=== PATIENT | female | born 1975 | race Caucasian/White ===

== ENCOUNTER 2025-05-25 15:07 | Emergency (ER) | payer SELFPAY ==
[~2025-05-25] VITALS: Ht 152.4 cm; Wt 62.1 kg
[2025-05-25 16:27] LABS: IMMATURE GRANULOCYTE ABSOLUTE 0.06 K/uL (0-1); NUCLEATED RED BLOOD CELLS 0.0 % (0.0-0.19); PLATELET COUNT (AUTO) 351 K/uL (130-400); RED BLOOD CELL COUNT(AUTO) 4.42 MIL/uL (4.00-5.50); RED CELL DISTRIBUTION WIDTH 13.0 % (11.0-15.5); WHITE BLOOD COUNT (AUTO) 9.5 K/uL (4.8-10.8)
[2025-05-25 16:38] LABS: CREATININE 0.6 mg/dL (0.5-1.0); GLOMERULAR FILTR. RATE CALC 111.0 mL/min (>90); GLUCOSE,RANDOM 103.0 mg/dL (70-105); SODIUM SERUM 137.0 mmol/L (136-145); UREA NITROGEN, BLOOD 10.0 mg/dL (7-18)
[2025-05-25 16:51] LABS: ADD UA MICROSCOPIC YES; APPEARANCE,URINE CLEAR (CLEAR); GLUCOSE, URINE (UA) NEGATIVE (NEGATIVE); LEUKOCYTE ESTERASE ,URINE NEGATIVE Leu/uL (NEGATIVE); NITRATE,URINE NEGATIVE (NEGATIVE); OCCULT BLOOD,URINE SMALL (NEGATIVE)
--- NOTE | 2025-05-25 16:57 | HMCIMG ---
EXAM: US for Deep Venous Thrombosis, Bilateral Lower Extremities. CLINICAL HISTORY: Leg pain and swelling. TECHNIQUE: Real-time ultrasound scan of the veins of the bilateral lower extremities with color Doppler flow, spectral waveform analysis and compression. COMPARISON: None provided. FINDINGS: DEEP VEINS: The common femoral, superficial femoral, and popliteal veins are echolucent and compressible bilaterally. There is normal color Doppler flow throughout. The visualized calf veins appear patent. SOFT TISSUES: No popliteal fossa cyst or other abnormality identified. IMPRESSION: * No sonographic evidence of deep venous thrombosis in either lower extremity. /[place]
[2025-05-25 17:00] LABS: SQUAMOUS EPITHELIAL CELL,UR Rare /HPF (0-2)
--- NOTE | 2025-05-25 17:21 | ERN ---
ED Note History of Present Illness Stated Complaint: BACK PAIN, RT UPPER LEG Chief Complaint: Back Pain-No Injury Time Seen by MD: 15:35 Time Seen by Midlevel: 15:36 Dictation: 50-year-old female with a history of hypertension and CAD coming in complaining with a right leg pain patient states she has has a pain from the knee up for one week and today started with the ankle pain as well. Patient states she has been so went for a clot. Denies any trauma. Allergies: Coded Allergies: ibuprofen (Unverified Allergy, Unknown, 05/25/25) ketorolac (Unverified Allergy, Unknown, 05/25/25) morphine (Unverified Allergy, Unknown, 05/25/25) tramadol (Unverified Allergy, Unknown, 05/25/25) Past Medical History Past Medical History: CAD, Cancer, Heart Disease, Hypertension Additional Past Medical Hx: CHRONS, VULVA CA, HX OF CERVICAL CA Surgical History: Appendectomy, Hysterectomy Surgical History Other: VAGINAL SX, PILONIDAL CYST, HEART CATH Review of System Dictation Constitutional: Negative for fever,chills, and weight loss Eyes: Negative for injury, pain,redness, and discharge ENT: Negative for injury,pain or swelling Cardiovascular: Negative for chest pain, palpitations, and edema Respiratory: Negative for shortness of breath, cough, and wheezing, Abdomen/GI: Negative for abdominal pain, nausea, vomiting, diarrhea, and constipation Back: Negative for injury and pain : Negative for injury, bleeding and discharge MS/Extremity: Negative for injury and deformity, right leg pain Skin: Negative for rash, and discoloration Neuro: Negative for headache, weakness, numbness, tingling, and seizure Psych: Negative for suicide ideation, homicidal ideation, and hallucinations Review of Systems: was completed Initial Vital Sign VS Vital Signs Date Time Temp Pulse Resp B/P (MAP) Pulse Ox O2 Delivery O2 Flow Rate FiO2 05/25/25 15:09 98.1 98 18 187/98 99 Room Air 0 05/25/25 16:14 21 Physical Exam Dictation General: awake, alert, NAD Head/Face: Normocephalic, atraumatic Eyes: PERRL, EOMI, vision at baseline ENT: oral cavity clear, TMs clear, no signs of infection Neck: Trachea midline, supple, no nuchal rigidity Cardiovascular: RRR, normal S1/S2, No MRGs, no JVD Respiratory: CTAB, no respiratory distress, No rales or wheezes Abdomen: Soft, non-tender, non-distended, normal bowel sounds, no guarding or rebound. Skin: Warm, dry, normal turgor, no rash MS/Extremity: Pulses equal, no cyanosis, neurovascular intact, FROM , cap refill less than 2 seconds, extremities warm to touch Neuro: COAx4, GCS 15, strength 5/5, CN 2-12 intact, normal cerebellar exam, normal gait, Psych: Normal behavior, mood, and affect normal Results (Laboratory/Radiology) Laboratory/Radiology Laboratory Tests Test 05/25/25 16:22 05/25/25 16:41 White Blood Count 9.5 K/uL (4.8-10.8) Red Blood Count 4.42 MIL/uL (4.00-5.50) Hemoglobin 13.5 g/dL (12.0-16.0) Hematocrit 40.8 % (36-48) Mean Corpuscular Volume 92.3 fL (79-99) Mean Corpuscular Hemoglobin 30.5 pg (27.0-33.0) Mean Corpuscular Hemoglobin Concent 33.1 g/dL (32.0-36.0) Red Cell Distribution Width 13.0 % (11.0-15.5) Platelet Count 351 K/uL (130-400) Mean Platelet Volume 9.9 fL (7.5-10.5) Immature Granulocyte % (Auto) 0.6 % (0-1) Neutrophils (%) (Auto) 54.0 % (40.0-77.0) Lymphocytes (%) (Auto) 32.3 % (21.0-51.0) Monocytes (%) (Auto) 10.1 % (3.0-13.0) Eosinophils (%) (Auto) 1.9 % (0.0-8.0) Basophils (%) (Auto) 1.1 % (0.0-5.0) Neutrophils # (Auto) 5.1 K/uL (1.8-7.7) Lymphocytes # (Auto) 3.1 K/uL (1.0-4.8) Monocytes # (Auto) 1.0 K/uL (0.1-1.0) Eosinophils # (Auto) 0.18 K/uL (0.00-0.70) Basophils # (Auto) 0.10 K/uL (0.00-0.20) Absolute Immature Granulocyte (auto 0.06 K/uL (0-1) Nucleated Red Blood Cells 0.0 % (0.0-0.19) Sodium Level 137 mmol/L (136-145) Potassium Level 3.6 mmol/L (3.5-5.1) Chloride Level 101 mmol/L (101-111) Carbon Dioxide Level 25 mmol/L (21-32) Blood Urea Nitrogen 10 mg/dL (7-18) Creatinine 0.6 mg/dL (0.5-1.0) Glomerular Filtration Rate Calc 111 mL/min (>90) Random Glucose 103 mg/dL (70-105) Total Calcium 8.6 mg/dL (8.5-10.1) Urine Color LIGHT-YELLOW (YELLOW) Urine Appearance CLEAR (CLEAR) Urine pH 6.0 (5.0-8.0) Urine Specific [place] 1.021 (1.001-1.031) Urine Protein NEGATIVE mg/dL (NEGATIVE) Urine Glucose (UA) NEGATIVE mg/dL (NEGATIVE) Urine Ketones NEGATIVE mg/dL (NEGATIVE) Urine Occult Blood SMALL (NEGATIVE) H Urine Nitrate NEGATIVE (NEGATIVE) Urine Bilirubin NEGATIVE mg/dL (NEGATIVE) Urine Urobilinogen 0.2 mg/dL (0.2-1.0) Urine Leukocyte Esterase NEGATIVE [place]/uL Urine RBC 0-1 /HPF (0-1) Urine WBC 0-1 /HPF (0-1) Urine Squamous Epithelial Cells Rare /HPF (0-2) Urine Bacteria Rare /HPF (None Seen) Labs Reviewed?: Yes EKG Comment: EKGs did not 18 10, sinus rhythm at a rate of 72. Probable left atrial enlargement. Ultrasound Comment: [place] [address] [id number] IMAGING REPORT Signed PATIENT: TONO JORGE MR#: [id number] : 1975 SEX: F AGE: 50 LOCATION: [facility] ORDER [id number] STATUS: REG ER REPORT#: [id number] SERVICE 1605 REASON: leg pain ORDERING PHYSICIAN: KALEB CABALLERO CNP PROCEDURE: VENOUS UNI - US VENOUS DOPPLER UNILATERAL EXAM: US for Deep Venous Thrombosis, Bilateral Lower Extremities. CLINICAL HISTORY: Leg pain and swelling. TECHNIQUE: Real-time ultrasound scan of the veins of the bilateral lower extremities with color Doppler flow, spectral waveform analysis and compression. COMPARISON: None provided. FINDINGS: DEEP VEINS: The common femoral, superficial femoral, and popliteal veins are echolucent and compressible bilaterally. There is normal color Doppler flow throughout. The visualized calf veins appear patent. SOFT TISSUES: No popliteal fossa cyst or other abnormality identified. IMPRESSION: * No sonographic evidence of deep venous thrombosis in either lower extremity. /[place] DICTATED BY: GISSEL BRUNO MD DATE: 05/25/251755 ELECTRONICALLY SIGNED BY: GISSEL BRUNO MD DATE: 05/25/251755 ED Course ED Course Orders Procedure Category Date Status Time Cbc With Differential LAB 05/25/25 Complete 16:05 Basic Metabolic Panel LAB 05/25/25 Complete 16:05 Us Venous Doppler US 05/25/25 Resulted Unilateral 16:05 Urinalysis Profile LAB 05/25/25 Complete 16:05 Ondansetron Odt 4mg PHA 05/25/25 In Process Tab (Zofran 4mg Odt) 16:30 Clonidine Hcl 0.2 Mg PHA 05/25/25 In Process Tablet (Catapres 0. 16:30 Orphenadrine Citrate PHA 05/25/25 In Process (Norflex) 17:30 Triamcinolone Acet PHA 05/25/25 In Process 40mg/Ml 1ml (Kenalog 17:30 Acetaminophen With PHA 05/25/25 Logged Codeine (Tylenol-Code 18:30 12 Lead Ekg Tracing- EKG 05/25/25 Logged Technical 18:09 Current Medications Medications (Trade) Dose Ordered Sig/Maria De Jesus Route PRN Reason Start Time Stop Time Status Last Admin Dose Admin Acetaminophen/ Codeine Phosphate (TYLenol-coDEINE TAB) 1 tab ONCE ONCE PO 05/25/25 18:30 05/25/25 18:31 UNV Clonidine HCl (CATApres 0.2 MG TAB) 0.2 mg ONCE PO 05/25/25 16:30 05/25/25 20:30 12/1/25 17:01 Ondansetron HCl (zoFRAN 4MG ODT) 4 mg ONCE SL 05/25/25 16:30 05/25/25 20:30 05/25/25 16:31 Orphenadrine Citrate (Norflex) 60 mg ONCE IM 05/25/25 17:30 05/25/25 21:30 Triamcinolone Acetonide (Kenalog 40) 40 mg ONCE SQ 05/25/25 17:30 05/25/25 21:30 Vital Signs Date Time Temp Pulse Resp B/P (MAP) Pulse Ox O2 Delivery O2 Flow Rate FiO2 05/25/25 18:04 98.8 135 18 179/121 98 Room Air* 0 21 05/25/25 17:01 134 179/120 05/25/25 16:14 98.8 134 18 98 Room Air* 0 21 05/25/25 15:09 98.1 98 18 187/98 99 Room Air 0 Medical Decision Making MDM MDM: 50-year-old female with a history of hypertension and CAD coming in complaining with a right leg pain patient states she has has a pain from the knee up for one week and today started with the ankle pain as well. Patient states she has been so went for a clot. Denies any trauma. Blood work is unremarkable. Ultrasound shows no evidence of DVT. Serum when he is warmth to touch, no mottling, no cyanosis, no suspicion for arterial occlusion.Patient is complaining of 10/10 pain, states she can only take oxycodone or Dilaudid. Was notified at about 17 50 that patient's BP was elevated and it was tachycardic in the 130s. Added an EKGs. EKGs was showing a rate of 72 at sinus rhythm. Patient isn't complaining of any chest pain, chest discomfort or palpitations. Just findings with the patient. Educated she isn't have a clot this could be related to muscle spasm, work UA tendon ear. Educated if this continues then he needs to follow up with PCP. Patient states she can does not have PCP and asked if I could write her a prescription for her clonidine 0.2 mg b.i.d.. Educated patient on signs and symptoms of when to return back to the ER. Patient verbalized understanding, answered all questions. Differential diagnosis: DVT, arthritis, Rationale: Tests considered and ordered secondary to shared decision making include: Previous outside records reviewed: Old ER visits. Risk of complication and/or morbidity or mortality of patient management: None Medications-Per medication reconciliation Need for hospitalization: Patient does not meet criteria for hospitalization. Need for emergency major/minor surgery: No There are no social concerns with this patient. Prescription drug management Prescriptions will include symptomatic care Patient's prior external medical records from other ER visits were reviewed by me as indicated. Prior testing and results from previous visits were reviewed. Prior tests were taken into account with medical decision making and resource utilization, independent historian/historians were used to obtain complete medical history. I independently interpreted the test that were performed, results were reviewed by me and considered findings on radiology if ordered. Medical management and examination interpretation discussions were had by me with other qualified healthcare professionals as indicated for the patient's care. DX & DISP Disposition: Discharge Departure Impression: Primary Impression: Leg pain, right Condition: Stable Scripts Clonidine HCl (Clonidine HCl) 0.2 Mg Tablet 1 TAB PO BID for 30 Days, #60 TAB 0 Refills Prov: KALEB CABALLERO CNP 05/25/25 Additional Instructions: Take a primary care doctor to continue your care here in the [place]. Return to the hospital if you develop severe leg pain, incontinence, weakness or any discoloration to your extremity. Referrals: SELF,REFERRAL (PCP) I have reviewed the case, and I agree with, Diagnosis and Plan KLAEB CABALLERO CNP May 25, 2025 17:21
[2025-05-25] MEDS: ORPHENADRINE 60MG/2ML IM SCH (17:30)
[2025-05-25] MEDS: TRIAMCINOLONE ACETONIDE 40 MG/ML 1ML VIAL SQ SCH (17:30)
[2025-05-25 18:04] VITALS: TEMP 98.8
[2025-05-25] MEDS ORDERED: CLON0.2T PO (18:34)
[2025-05-25 18:44] VITALS: BP 161/115; PULSE 80; RESP 17; O2SAT 96
--- NOTE | 2025-05-26 06:34 | EKG ---
Test Date: 2025-05-25 Test Time: 18:10:42 Pat Name: TONO JORGE Department: ED Room: Gender: F Gauge Checker: [facility] : 1975 Requested By: KALEB CABALLERO Order Number: [id number] Reading MD: Flavio Aguilar Measurements Intervals [place] Rate: 72 P: 51 MS: 160 QRS: -1 QRSD: 74 T: 19 QT: 401 QTc: 440 Interpretive Statements Sinus rhythm Probable left atrial enlargement Anteroseptal infarct, age indeterminate No previous ECG available for comparison Electronically Signed On 05-26-2025 09:20:08 GARMENT SUPERVISOR by Flavio Aguilar Please click the below link to view image of tracing.
== END 2025-05-25 18:52 | disposition home or self-care (01) ==
LOC: EDH 15:07
DX: M79.604 Pain in right leg (principal); I11.9 Hypertensive heart disease without heart failure; I25.10 Atherosclerotic heart disease of native coronary artery without angina pectoris; Z85.44 Personal history of malignant neoplasm of other female genital organs; Z88.5 Allergy status to narcotic agent; Z88.6 Allergy status to analgesic agent; Z90.49 Acquired absence of other specified parts of digestive tract; Z90.710 Acquired absence of both cervix and uterus
CPT/HCPCS: 36415; 80048; 81001; 85025; 93005; 93971; 99285; J3301; J2360